=== PATIENT | male | born 1985 | race Hispanic/Latino ===

== ENCOUNTER 2017-01-19 06:42 | Emergency (ER) | payer MEDICAID ==
[2017-01-19 06:49] VITALS: TEMP 97.4
[2017-01-19 06:50] VITALS: BMI 27.2
[2017-01-19 06:58] VITALS: RESP 16
[2017-01-19] MEDS ORDERED: Naproxen 550 mg Tab PO STA (07:13)
--- NOTE | 2017-01-19 07:38 | ED PDOC ---
Arrival/HPI - General Chief Complaint: Lower Extremity Problem/Injury Time Seen by Provider: 01/19/17 07:09 Historian: Patient - History of Present Illness Narrative History of Present Illness (Text): 01/19/17 07:18 A 31 year old male presents to the emergency department complaining of left 5th digit foot pain after mechanical fall last night. Patient reports he "fell down the stairs" injuring his toe. Patient denies any other injuries, loss of consciousness, head trauma, headache, dizziness, neck pain, back pain, fever, nausea, vomiting, diarrhea, abdominal pain, chest pain, shortness of breath or any other complaints. Time/Duration: Other (Last night) Symptom Course: Unchanged Quality: Other Context: Home Past Medical History - Provider Review Nursing Documentation Reviewed: Yes - Pulmonary Hx Sleep Apnea: Yes - Psychiatric Hx Substance Use: No Family/Social History - Physician Review Nursing Documentation Reviewed: Yes Family/Social History: No Known Family HX Smoking Status: Never Smoked Hx Alcohol Use: No Hx Substance Use: No Allergies/Home Meds Allergies/Adverse Reactions: Allergies No Known Allergies Allergy (Verified 01/19/17 06:49) Review of Systems - Physician Review All systems were reviewed & negative as marked: Yes - Review of Systems Constitutional: absent: Fevers Respiratory: absent: SOB Cardiovascular: absent: Chest Pain Gastrointestinal: absent: Abdominal Pain, Diarrhea, Nausea, Vomiting Musculoskeletal: Other (Left 5th digit foot pain). absent: Back Pain, Neck Pain Neurological: absent: Headache, Dizziness Physical Exam Vital Signs Reviewed: Yes Vital Signs Temp Pulse Resp BP Pulse Ox 01/19/17 08:37 65 16 104/65 98 01/19/17 06:58 61 16 122/70 95 01/19/17 06:49 97.4 F L 57 L 18 107/44 L 98 Temperature: Afebrile Blood Pressure: Hypotensive Pulse: Bradycardic Respiratory Rate: Normal Appearance: Positive for: Well-Appearing, Non-Toxic, Comfortable Pain Distress: None Mental Status: Positive for: Alert and Oriented X 3 - Systems Exam Head: Present: Atraumatic, Normocephalic Pupils: Present: PERRL Extroacular Muscles: Present: EOMI Conjunctiva: Present: Normal Mouth: Present: Moist Mucous Membranes Neck: Present: Normal Range of Motion Respiratory/Chest: Present: Clear to Auscultation, Good Air Exchange. No: Respiratory Distress, Accessory Muscle Use Cardiovascular: Present: Regular Rate and Rhythm, Normal S1, S2. No: Murmurs Abdomen: Present: Normal Bowel Sounds. No: Tenderness, Distention, Peritoneal Signs Back: Present: Normal Inspection Upper Extremity: Present: Normal Inspection. No: Cyanosis, Edema Lower Extremity: Present: NORMAL PULSES, Normal ROM, Tenderness (Left 5th toe tenderness to palpation), Swelling (Left 5th toe swelling), Neurovascularly Intact. No: Edema, CALF TENDERNESS, Erythema, Deformity, Temperature Abnormalties Neurological: Present: GCS=15, CN II-XII Intact, Speech Normal Skin: Present: Warm, Dry, Normal Color. No: Rashes Psychiatric: Present: Alert, Oriented x 3, Normal Insight, Normal Concentration Medical Decision Making ED Course and Treatment: 01/19/17 07:18 Impression: A 31 year old male with left 5th digit foot pain after fall. Tenderness and swelling on exam. Plan: -- Left foot xray -- Naproxen -- Reassess and disposition Progress Notes: 01/19/17 07:20 Foot xray read and interpreted by me, which shows no acute fractures. 01/19/17 08:09 On re-evaluation, patient feels better and is in no acute distress. I have discussed the results and plan with the patient, who expresses understanding. Patient in agreement with plan to be discharged home. Patient is stable for discharge. Patient was instructed to follow up with physician or return if symptoms worsen or new concerning symptoms arise. 01/19/17 08:43 pt given ortho shoe upon d/c - RAD Interpretation Radiology Orders: 01/19/17 07:13 FOOT LEFT 3 VIEWS ROUTINE [RAD] Stat - Medication Orders Current Medication Orders: Discontinued Medications Naproxen (Anaprox Ds) 550 mg PO STAT STA Stop: 01/19/17 07:14 Last Admin: 01/19/17 07:25 Dose: Not Given Non-Admin Reason: Patient Refused - Scribe Statement The provider has reviewed the documentation as recorded by the Fredyibbonnie Kline Provider Scribe Attestation: All medical record entries made by the Scribe were at my direction and personally dictated by me. I have reviewed the chart and agree that the record accurately reflects my personal performance of the history, physical exam, medical decision making, and the department course for this patient. I have also personally directed, reviewed, and agree with the discharge instructions and disposition. Disposition/Present on Arrival - Present on Arrival Any Indicators Present on Arrival: No History of DVT/PE: No History of Uncontrolled Diabetes: No Urinary Catheter: No History of Decub. Ulcer: No History Surgical Site Infection Following: None - Disposition Have Diagnosis and Disposition been Completed?: Yes Diagnosis: Foot sprain Disposition: HOME/ ROUTINE Disposition Time: 08:05 Condition: STABLE Discharge Instructions (ExitCare): Foot Sprain (ED), Foot Contusion (ED) Additional Instructions: please follow up with your doctor. return to er with worsening symptoms or concerns. Prescriptions: Naproxen [Naprosyn] 500 mg PO BID PRN #14 tablet PRN Reason: Pain, Mild (1-3) Referrals: Ying Jarvis, [Primary Care Provider] - Follow up with primary
[2017-01-19 08:38] VITALS: BP 104/65; PULSE 65; O2SAT 98
--- NOTE | 2017-01-19 08:40 | RAD ---
PROCEDURE: Left Foot Radiographs. HISTORY: trauma COMPARISON: None available. FINDINGS: BONES: No acute displaced fracture. JOINTS: No dislocation. SOFT TISSUES: Soft tissue swelling. No evidence of radiopaque foreign body. OTHER FINDINGS: None. IMPRESSION: Soft tissue swelling. No acute displaced fracture, dislocation, or significant joint effusion identified. If symptoms persist, or if there is continued clinical concern, x-ray follow-up in 7-10 days should be considered.
== END 2017-01-19 08:37 | disposition home or self-care (01) ==
LOC: ED 06:42
DX: S93.602A Unspecified sprain of left foot, initial encounter (principal); W10.8XXA Fall (on) (from) other stairs and steps, initial encounter; Y92.89 Other specified places as the place of occurrence of the external cause

== ENCOUNTER 2017-11-30 07:14 | Emergency (ER) | payer MEDICAID ==
[2017-11-30 07:22] VITALS: BMI 25.8
[2017-11-30 07:35] VITALS: RESP 18; TEMP 97.2
--- NOTE | 2017-11-30 08:02 | ED PDOC ---
Arrival/HPI - General Chief Complaint: Chest Pain Time Seen by Provider: 11/30/17 07:50 - History of Present Illness Narrative History of Present Illness (Text): 32 y/o M c no PMHx p/w chest pain x 2 weeks. Pain is R rided, in a focal area, constant, nonradiating, associated with mild shortness of breath that is worse with exertion. He denies fever, cough, nausea, vomiting, diaphoresis, leg swelling, recent travel, recent surgery/trauma. Past Medical History - Pulmonary Hx Sleep Apnea: Yes - Psychiatric Hx Substance Use: No Family/Social History Family/Social History: No Known Family HX Smoking Status: Never Smoked Hx Alcohol Use: No Hx Substance Use: No Allergies/Home Meds Allergies/Adverse Reactions: Allergies No Known Allergies Allergy (Verified 11/30/17 07:35) Review of Systems - Physician Review All systems were reviewed & negative as marked: Yes - Review of Systems Constitutional: absent: Fevers Gastrointestinal: absent: Abdominal Pain Physical Exam - Physical Exam Narrative Physical Exam (Text): Gen: NAD Head: NC Eyes: No scleral icterus ENT: MMM Neck: Supple Chest: No tenderness CV: Regular rate Lungs: CTA b/l Abd: Soft, NT Skin: No rash Extremities: L lower leg slightly larger than R. Neuro: Alert, no focal deficit Vital Signs Temp Pulse Resp BP Pulse Ox 11/30/17 09:22 58 L 18 110/69 100 11/30/17 07:31 97.2 F L 55 L 18 114/66 99 Medical Decision Making ED Course and Treatment: EKG Sinus rhythm, 56 bpm, no ST/T wave changes. Check enzymes to exclude ACS in this pain of 2 weeks. Check D dimer, if positive , rule out PE. Send for doppler to evaluate for DVT. 11/30/17 09:02 chest xray- Creator : Kandy Cantor MD FINDINGS: LINES AND TUBES: None. LUNG AND PLEURA: The lungs are well inflated and clear. HEART AND MEDIASTINUM: The heart is not enlarged. The hilar and mediastinal contours are within normal limits. SKELETAL STRUCTURES: The bony structures are within normal limits for the patient's age. VISUALIZED UPPER ABDOMEN: Normal. IMPRESSION: No active pulmonary disease. 11/30/17 09:09 Left lower extremity venous US Creator : Santos Kelley MD FINDINGS: The visualized deep venous system of the left lower extremity is sonographically normal and compressible. Normal wave forms and augmentation are seen. There is no sonographic evidence for deep venous thrombosis in the visualized segments of the left lower extremity. IMPRESSION: 1. No sonographic evidence for deep venous thrombosis in the visualized segments of the left lower extremity. 11/30/17 11:05 CT Chest with contrast (Pulmonary Angiogram) Creator : Hay Cazares MD IMPRESSION: Unremarkable CT pulmonary angiogram. No pulmonary embolus. Patient in no distress, advised continued follow up in office. - Lab Interpretations Lab Results: 11/30/17 07:10 11/30/17 08:20 Lab Results 11/30/17 08:20: Sodium 143, Potassium 4.2, Chloride 107, Carbon Dioxide 27, Anion Gap 13, BUN 12, Creatinine 1.1, Est GFR ( Amer) > 60, Est GFR (Non- Af Amer) > 60, Random Glucose 81, Calcium 9.4, Total Bilirubin 0.6, AST 24, ALT 44, Alkaline Phosphatase 44, Total Creatine Kinase 158, Troponin I < 0.01, Total Protein 6.9, Albumin 3.9, Globulin 3.0, Albumin/Globulin Ratio 1.3 11/30/17 07:10: PT 12.6 H, INR 1.09 H, APTT 25.8, D-Dimer, Quantitative 353 H 11/30/17 07:10: WBC 7.1, RBC 4.90, Hgb 14.5, Hct 43.7, MCV 89.2, MCH 29.6, MCHC 33.2, RDW 13.3, Plt Count 175, MPV 11.5 H, Gran % 53.0, Lymph % (Auto) 32.4, [place] % (Auto) 10.8 H, Eos % (Auto) 3.5, Baso % (Auto) 0.3, Gran # 3.77, Lymph # (Auto) 2.3, [place] # (Auto) 0.8 H, Eos # (Auto) 0.3, Baso # (Auto) 0.02 - RAD Interpretation Radiology Orders: 11/30/17 07:59 CHEST TWO VIEWS (PA/LAT) [RAD] Stat 11/30/17 08:04 DUPLEX LOWER EXTRM VEIN LEFT [US] Stat 03/02/18 10:20 ANGIO CHEST PE PROTOCOL [CT] Stat Disposition/Present on Arrival - Present on Arrival Any Indicators Present on Arrival: No History of DVT/PE: No History of Uncontrolled Diabetes: No Urinary Catheter: No History of Decub. Ulcer: No History Surgical Site Infection Following: None - Disposition Have Diagnosis and Disposition been Completed?: Yes Diagnosis: Chest pain Disposition: HOME/ ROUTINE Disposition Time: 11:15 Patient Plan: Discharge Condition: STABLE Discharge Instructions (ExitCare): Chest Pain (ED) Referrals: Ying Jarvis, [Primary Care Provider] - Follow up with primary Forms: [employer] (Urdu)
[2017-11-30 08:20] LABS: BASO # 0.02 K/mm3 (0.0-2.0); BASO % 0.3 % (0.0-3.0); EOS # 0.3 (0.0-0.7); EOS % 3.5 % (1.5-5.0); GRAN # 3.77 (1.4-6.5); HEMOGLOBIN 14.5 g/dL (14.0-18.0); LYMPH # 2.3 (1.2-3.4); LYMPH % 32.4 % (22.0-35.0); MEAN CELL VOLUME 89.2 fl (80.0-105.0); MEAN CORPUSCULAR HEMOGLOBIN 29.6 pg (25.0-35.0); MEAN CORPUSCULAR HGB CONC 33.2 g/dl (31.0-37.0); MEAN PLATELET VOLUME 11.5 fl (7.0-11.0); MONO # 0.8 (0.1-0.6); MONO % 10.8 % (1.0-6.0); RBC 4.9 10^6/uL (3.5-6.1); RED CELL DISTRIBUTION WIDTH 13.3 % (11.5-14.5); WHITE BLOOD COUNT 7.1 10^3/ul (4.5-11.0)
[2017-11-30 08:38] LABS: INR 1.09 (0.93-1.08); PARTIAL THROMBOPLASTIN TIME 25.8 Seconds (25.1-36.5); PROTHROMBIN TIME 12.6 SECONDS (9.4-12.5)
[2017-11-30 08:47] LABS: ALB/GLOB RATIO 1.3 (1.1-1.8); ALBUMIN 3.9 g/dL (3.0-4.8); ALT/SGPT 44 U/L (7-56); AST/SGOT 24 U/L (17-59); BLOOD UREA NITROGEN 12 mg/dL (7-21); CALCIUM 9.4 mg/dL (8.4-10.5); GFR AFRICAN-AMERICAN > 60; GFR NON-AFRICAN AMERICAN > 60
[2017-11-30 08:58] LABS: TROPONIN I < 0.01 ng/mL
--- NOTE | 2017-11-30 09:07 | US ---
PROCEDURE: Left lower extremity venous US HISTORY: Leg pain and swelling. Evaluate for DVT. PHYSICIAN(S): Santos Linder MD. TECHNIQUE: Duplex sonography and color-flow Doppler with graded compression were used to evaluate the deep venous system of the left lower extremity. FINDINGS: The visualized deep venous system of the left lower extremity is sonographically normal and compressible. Normal wave forms and augmentation are seen. There is no sonographic evidence for deep venous thrombosis in the visualized segments of the left lower extremity. IMPRESSION: 1. No sonographic evidence for deep venous thrombosis in the visualized segments of the left lower extremity.
[2017-11-30] MEDS ORDERED: Iohexol 350 MG/100 ML VIAL ONE (09:18)
[2017-11-30 09:23] VITALS: O2SAT 100
--- NOTE | 2017-11-30 11:02 | CT ---
PROCEDURE: CT Chest with contrast (Pulmonary Angiogram) HISTORY: chest pain, dyspnea COMPARISON: None available. TECHNIQUE: Axial computed tomography images were obtained of the chest in the pulmonary arterial phase of enhancement. Coronal and sagittal reformatted images were created and reviewed. This CT exam was performed using one or more of the following dose reduction techniques: Automated exposure control, adjustment of the mA and/or kV according to patient size, and/or use of iterative reconstruction technique. Intravenous contrast dose: 100 cc of Omni 350 Radiation dose: Total exam DLP = 371 mGy-cm. FINDINGS: PULMONARY ARTERIES: Unremarkable. No pulmonary embolism. AORTA: No acute findings. No thoracic aortic aneurysm. LUNGS: Unremarkable. No nodule, mass or pulmonary consolidation. PLEURAL SPACES: Unremarkable. No effusion or pneuomothorax. HEART: Unremarkable. No cardiomegaly. No significant pericardial effusion. LYMPH NODES: No lymphadenopathy. BONES, CHEST WALL: Unremarkable. No fracture or destructive lesion OTHER FINDINGS: Unremarkable. IMPRESSION: Unremarkable CT pulmonary angiogram. No pulmonary embolus.
[2017-11-30 11:40] VITALS: BP 115/80; PULSE 56
--- NOTE | 2017-11-30 15:32 | CARD ---
APPROVED REPORT EKG Measurement Heart [id number] <Conclusion> Sinus bradycardia with sinus arrhythmia Otherwise normal ECG
== END 2017-11-30 11:40 | disposition home or self-care (01) ==
LOC: ED 07:14
DX: R07.9 Chest pain, unspecified (principal)
CPT/HCPCS: 71046; 71275; 80053; 82550; 84484; 85025; 85378; 85610; 85730; 93005; 93971; 99283; Q9967

== ENCOUNTER 2018-05-17 17:39 | Emergency (ER) | payer MEDICAID ==
[2018-05-17 17:40] VITALS: BMI 25.8
[2018-05-17 17:58] VITALS: BP 137/72; PULSE 65; RESP 18; TEMP 98.2; O2SAT 98
--- NOTE | 2018-05-17 18:29 | ED PDOC ---
Arrival/HPI - General Chief Complaint: Lower Extremity Problem/Injury Time Seen by Provider: 05/17/18 17:59 Historian: Patient - History of Present Illness Narrative History of Present Illness (Text): 05/17/18 18:17 33yo male with no pmhx present with complaint of right 5th toe pain. States he stubbed the toe on a door 3days ago and then someone stepped on it again today. States pain is only with ambulation. Denies any other complaint. Past Medical History - Provider Review Nursing Documentation Reviewed: Yes - Infectious Disease Hx of Infectious Diseases: None - Pulmonary Hx Sleep Apnea: Yes - Psychiatric Hx Substance Use: No - Surgical History Hx Orthopedic Surgery: Yes - Anesthesia Hx Anesthesia: Yes Hx Anesthesia Reactions: No Family/Social History - Physician Review Nursing Documentation Reviewed: Yes Family/Social History: Unknown Family HX Smoking Status: Never Smoked Hx Alcohol Use: No Hx Substance Use: No Allergies/Home Meds Allergies/Adverse Reactions: Allergies No Known Allergies Allergy (Verified 05/17/18 17:58) Review of Systems - Physician Review All systems were reviewed & negative as marked: Yes - Review of Systems Constitutional: Normal Eyes: Normal ENT: Normal Respiratory: Normal Cardiovascular: Normal Gastrointestinal: Normal Genitourinary Male: Normal Musculoskeletal: Arthralgias (Right 5th toe pain) Skin: Normal Neurological: Normal Endocrine: Normal Hemo/Lymphatic: Normal Psychiatric: Normal Physical Exam Vital Signs Reviewed: Yes Vital Signs Temp Pulse Resp BP Pulse Ox 05/17/18 17:54 98.2 F 65 18 137/72 98 Temperature: Afebrile Blood Pressure: Normal Pulse: Regular Respiratory Rate: Normal Appearance: Positive for: Well-Appearing, Non-Toxic, Comfortable Pain Distress: None Mental Status: Positive for: Alert and Oriented X 3 - Systems Exam Head: Present: Atraumatic, Normocephalic Pupils: Present: PERRL Extroacular Muscles: Present: EOMI Conjunctiva: Present: Normal Mouth: Present: Moist Mucous Membranes Neck: Present: Normal Range of Motion Respiratory/Chest: Present: Clear to Auscultation, Good Air Exchange. No: Respiratory Distress, Accessory Muscle Use Cardiovascular: Present: Regular Rate and Rhythm, Normal S1, S2. No: Murmurs Abdomen: No: Tenderness, Distention, Peritoneal Signs Back: Present: Normal Inspection Upper Extremity: Present: Normal Inspection. No: Cyanosis, Edema Lower Extremity: Present: Normal ROM, Neurovascularly Intact. No: Edema, Tenderness (Right 5th toe), Swelling, Deformity Neurological: Present: GCS=15, CN II-XII Intact, Speech Normal Skin: Present: Warm, Dry, Normal Color. No: Rashes Psychiatric: Present: Alert, Oriented x 3, Normal Insight, Normal Concentration Medical Decision Making ED Course and Treatment: 05/18/18 00:38 Right foot xray - ??Nondisplaced fracture at the distal 5th phalanx Result was DW the pt Bebeto tapped applied and ortho shoe given Pt referred to a Animal Care Supervisor - RAD Interpretation Radiology Orders: 05/17/18 18:14 FOOT RIGHT 5TH DIGIT (TOE) [RAD] Stat - Medication Orders Current Medication Orders: Discontinued Medications Ibuprofen (Motrin Tab) 600 mg PO STAT STA Stop: 05/17/18 18:48 Last Admin: 05/17/18 19:13 Dose: Not Given Non-Admin Reason: Patient Refused Disposition/Present on Arrival - Present on Arrival Any Indicators Present on Arrival: No History of DVT/PE: No History of Uncontrolled Diabetes: No Urinary Catheter: No History of Decub. Ulcer: No History Surgical Site Infection Following: None - Disposition Have Diagnosis and Disposition been Completed?: Yes Diagnosis: Toe fracture Disposition: HOME/ ROUTINE Disposition Time: 18:50 Patient Plan: Discharge Condition: STABLE Discharge Instructions (ExitCare): Toe Fracture (DC) Additional Instructions: Follow up with your doctor/Animal Care Supervisor Return to Emergency department for any new or worsening symptoms Prescriptions: Ibuprofen [Motrin Tab] 600 mg PO Q6 #15 tab Referrals: Kenneth Meehan DPM [Staff Provider] - Follow up with primary Forms: [employer] (Sudanese)
--- NOTE | 2018-05-18 08:39 | RAD ---
Date of service: 05/17/2018 PROCEDURE: Right foot 05/17/2018 HISTORY: Toe pain s/p trauma COMPARISON: No prior study available comparison however correlation made with radiographs left foot dated the 01/19/2017. TECHNIQUE: Three views right foot FINDINGS: No definitive evidence of acute displaced fracture nor dislocation. The osseous structures intact. If symptoms persist or occult fracture suspected clinically recommend repeat radiographs in 5-10 days as most fractures should become radiographically evident in this timeframe. IMPRESSION: No definitive evidence of acute displaced fracture nor dislocation. The osseous structures intact. If symptoms persist or occult fracture suspected clinically recommend repeat radiographs in 5-10 days as most fractures should become radiographically evident in this timeframe.
== END 2018-05-17 19:17 | disposition home or self-care (01) ==
LOC: ED 17:39
DX: S92.501A Displaced unspecified fracture of right lesser toe(s), initial encounter for closed fracture (principal); W50.0XXA Accidental hit or strike by another person, initial encounter